=== PATIENT | male | born 1965 | race Caucasian/White ===

== ENCOUNTER → 2016-11-24 | Outpatient (CLI) | payer OTHER ==
[~2016-11-24] MED LIST: ADVIL200 M2 PO; AMBIEN PO; DEXILANT60 MG PO; LISINOPRIL10 MG PO; PRILOSEC PO; RELPAX20 MG PO
--- NOTE | ~2016-11-24 | US84 ---
[id number] [facility]. [facility] [address] [facility]. [place], [place] [address] [id number] O MR#: [id number] Acc #: [id number] NAME: LISSETTE WORLEY : 1965 SEX: M STUDY DATE/TIME: 11/24/2016 10:45 UNIT: [facility] ROOM: STUDY DESCRIPTION: US LE Veins Complete Henry Stdy Attending Physician: Sam Pool M.D. Referring Physician: Sam Pool M.D. Ordering Physician: Sam Pool M.D. Primary Care Physician: Kati Fang A.P.R.N. MEDICAL IMAGING REPORT This report is preliminary unless electronic signature is present EXAM Bilateral lower extremity venous duplex, 11/24/2016 HISTORY Right calf swelling, chronic since May 02, 2016. Right lower extremity venous duplex obtained 04/15/2016 did demonstrate thrombus in the right posterior tibial vein and right peroneal vein. Followup. TECHNIQUE Venous ultrasound examination of both lower extremities was performed using grayscale, spectral Doppler and color flow Doppler imaging. FINDINGS The examination is negative. There is no evidence of deep venous thrombus from the groin to the lower calf bilaterally. Visualized greater saphenous veins are also patent. IMPRESSION Negative examination. No evidence of bilateral lower extremity deep venous thrombosis. Dictated by... Martin Shaw M.D. THIS IS AN ELECTRONICALLY VERIFIED REPORT Martin Shaw M.D. at 11/25/2016 8:01 AM GERARD/gustavo TD: 11/24/2016 11:59 JOB #: [id number] MEDICAL IMAGING REPORT Page 1 of 1 COPY
== END | disposition home or self-care (01) ==
LOC: CNIV 09:56
DX: I82.409 Acute embolism and thrombosis of unspecified deep veins of unspecified lower extremity (principal)
CPT/HCPCS: 93970